=== PATIENT | male | born 1970 | race Caucasian/White ===

== ENCOUNTER 2018-11-10 06:43 | Day surgery (SDC) | payer OTHER ==
[2018-11-10] MEDS ORDERED: Lactated Ringers 1,000 ML IV ONE (06:44)
[2018-11-10] MEDS ORDERED: Ketorolac 30 MG/ML SDV IVPUSH ONE (06:44)
[2018-11-10] MEDS ORDERED: fentaNYL 100 MCG/2 ML SDV IV ONE (06:44)
[2018-11-10] MEDS ORDERED: Propofol 200 MG/20 ML SDV IV ONE (06:44)
[2018-11-10] MEDS ORDERED: Midazolam 1 MG/ML 2 ML SDV IV ONE (06:44)
[2018-11-10] MEDS ORDERED: Ondansetron 4 MG/2 ML SDV IVPUSH ONE (06:44)
[2018-11-10] MEDS ORDERED: Sodium Chloride 0.9% 10 ML Syringe FLUSH PRN (06:45)
[2018-11-10] MEDS: Lactated Ringers 1,000 ML IV SCH (07:15)
--- NOTE | 2018-11-10 07:32 | PCM.HP ---
H&P History of Present Illness - General Date of Service: 11/10/18 Admit Problem/Dx: Admission Diagnosis/Problem Admission Diagnosis/Problem Hernia repair Source of Information: Patient, Old Records - History of Present Illness Initial Comments - Free Text/Narative: 48 yo wm with a hx of right groin pain. Off and on and recently renewed with an exercise regimen. Some scrotal pain. No bulge US demonstrates hernia on valsalva. - Related Data Allergies/Adverse Reactions: Allergies Allergy/AdvReac Type Severity Reaction Status Date / Time No Known Allergies Allergy Verified 11/09/18 10:03 Home Medications: Home Meds Multivitamin [Multivitamins] 1 each PO DAILY 11/09/18 [History] Naproxen Sodium [Aleve] 220 mg PO BID PRN 11/09/18 [History] Past Medical History HEENT History: Reports: None Cardiovascular History: Reports: None Respiratory History: Reports: None Gastrointestinal History: Reports: None Genitourinary History: Reports: None [employer] History: Reports: None Musculoskeletal History: Reports: None Neurological History: Reports: None Psychiatric History: Reports: None Endocrine/Metabolic History: Reports: Obesity/BMI 30+ Hematologic History: Reports: None Immunologic History: Reports: None Oncologic (Cancer) History: Reports: None Dermatologic History: Reports: None - Past Surgical History Head Surgeries/Procedures: Reports: None HEENT Surgical History: Reports: LEANDRA Cardiovascular Surgical History: Reports: None Respiratory Surgical History: Reports: None GI Surgical History: Reports: None Male Surgical History: Reports: None Endocrine Surgical History: Reports: None Neurological Surgical History: Reports: None Musculoskeletal Surgical History: Reports: None Oncologic Surgical History: Reports: None Dermatological Surgical History: Reports: None Social & Family History - Tobacco Use Smoking Status *Q: Never Smoker - Caffeine Use Caffeine Use: Reports: Soda - Recreational Drug Use Recreational Drug Use: No H&P Review of Systems - Review of Systems: Review Of Systems: See Below General: Reports: No Symptoms HEENT: Reports: No Symptoms Pulmonary: Reports: No Symptoms Cardiovascular: Reports: No Symptoms Gastrointestinal: Reports: No Symptoms Genitourinary: Reports: Other (see hpi) Musculoskeletal: Reports: No Symptoms Skin: Reports: No Symptoms Neurological: Reports: No Symptoms Exam - Exam Exam: See Below - Vital Signs Vital Signs: Last Vital Signs Temp 97.9 F 11/10/18 07:14 Pulse 63 11/10/18 07:14 Resp 16 11/10/18 07:14 BP 140/82 11/10/18 07:14 Pulse Ox 97 11/10/18 07:14 Weight: 121.7 kg - Exam General: Alert, Oriented Neck: Trachea Midline Lungs: Clear to Auscultation, Normal Respiratory Effort Cardiovascular: Regular Rate, Regular Rhythm GI/Abdominal Exam: Normal Bowel Sounds, Soft, Non-Tender (Male) Exam: Normal Inspection Extremities: Normal Inspection - Problem List (1) Inguinal hernia of right side without obstruction or gangrene SNOMED Code(s): 085299907 ICD Code: K40.90 - UNIL INGUINAL HERNIA, W/O OBST OR GANGR, NOT SPCF RECUR Status: Acute Current Visit: Yes Problem List Initiated/Reviewed/Updated: Yes Orders Last 24hrs: Active Orders 24 hr Category Date Time Status Patient Status [ADT] Routine ADT 11/10/18 06:45 Ordered Patient to Empty Bladder [RC] ASDIRECTED Care 11/10/18 06:45 Active Verify Patient Consent Obtain [RC] ASDIRECTED Care 11/10/18 06:45 Active Nothing Per Oral Diet [DIET] Diet 11/09/18 Dinner Ordered Lactated Ringers [Ringers, Lactated] 1,000 ml Med 11/10/18 06:45 Active IV ASDIRECTED Sodium Chloride 0.9% [Saline Flush] Med 11/10/18 06:45 Active 10 ml FLUSH ASDIRECTED PRN ceFAZolin [Ancef] 3 gm Med 11/10/18 08:00 Active Sodium Chloride 0.9% [Normal Saline] 100 ml IV ONETIME Peripheral IV Insertion Adult [OM.PC] Routine Oth 11/10/18 06:45 Ordered Sequential Compression Device [OM.PC] Routine Oth 11/10/18 06:45 Ordered Resuscitation Status Routine Resus Stat 11/09/18 10:06 Ordered Medication Orders Cefazolin Sodium 3 gm/ Sodium (Chloride) 100 mls @ 200 mls/hr IV ONETIME ONE Stop: 11/10/18 08:29 Last Admin: 11/10/18 07:26 Dose: 200 mls/hr Lactated Ringer's (Ringers, Lactated) 1,000 mls @ 125 mls/hr IV ASDIRECTED [facility] Last Admin: 11/10/18 07:15 Dose: 125 mls/hr Sodium Chloride (Saline Flush) 10 ml FLUSH ASDIRECTED PRN PRN Reason: Keep Vein Open Assessment/Plan Comment:: Given US results will proceed with a repair. procedure and risks explained to the pt to include bleeding, infection, injury to vas deferens and blood supply to testes. use of mesh and injury/division of ilioinguinal nerve also discussed. he asks us to proceed.
[2018-11-10] MEDS: Lidocaine 1% with EPINEPHrine 1:100,000 20 ML MDV INJECT ONE (08:08)
[2018-11-10] MEDS: Bupivacaine 0.5% 50 ML MDV INJECT ONE (08:08)
--- NOTE | 2018-11-10 08:50 | PCM.OPNOTE ---
- General Post-Op/Procedure Note Date of Surgery/Procedure: 11/10/18 Operative Procedure(s): rih repair Findings: direct hernia Pre Op Diagnosis: rih. without obstruction or gangrene Post-Op Diagnosis: Same Anesthesia Technique: General LMA, Local (12 ml 1 % lido with epi 1%buvipicaine) Primary Surgeon: Abrahan Hatch Anesthesia Provider: Curtis Ballard Pathology: none Complications: None Condition: Good Free Text/Narrative:: see dictation
[2018-11-10] MEDS: Acetaminophen/HYDROcodone 325-5 MG Tab PO PRN (09:29)
--- NOTE | 2018-11-10 10:57 | OR ---
DATE OF OPERATION: 11/10/2018 SURGEON: Abrahan Hatch MD PROCEDURE PERFORMED: Right inguinal hernia repair. PREOPERATIVE DIAGNOSIS: Right inguinal hernia. POSTOPERATIVE DIAGNOSIS: Right inguinal hernia. INDICATIONS FOR PROCEDURE: This is a 48-year-old white male, referred with a history of some right groin discomfort. Ultrasound revealed what appeared to be an inguinal hernia. He was offered and accepted repair. INTRAOPERATIVE FINDINGS: Weakness in the floor of the inguinal canal, which appeared to be a direct hernia was identified. This was repaired with a Phasix plug and patch, size medium, lot number [id number], reference #[id number], expiration date of 12/05/2019. He had a total of 12 mL of 1:1 mixture of 1% lidocaine with epinephrine 0.5% bupivacaine was used. DESCRIPTION OF OPERATION: After an excellent LMA anesthesia was administered, the patient was prepped and draped in usual sterile manner. Local was injected along our planned incision site, which was along the line and intercepted the ilioinguinal nerve correction between the anterior-superior iliac spine and the symphysis pubis. A 5 cm incision was made. Skin was incised with a #15 scalpel blade. Underlying subcu fat was divided using electrocautery and the superficial inferior epigastric veins were clamped, divided, and tied with 2-0 Vicryl ties. Aponeurosis of the external oblique was exposed. More local was injected underneath the aponeurosis. A radha was made in the aponeurosis and carried out through the external ring. The aponeurosis was controlled with two hemostats. The cord was mobilized. Attempts to visualize the ilioinguinal nerve were not successful and assumed he must have had an anatomic variation in this regard. After controlling the spermatic cord with a Demetrius drain, the cord was skeletonized. Cord lipoma was excised and passed off the field. There did not appear to be any evidence of indirect hernia, but the direct hernia was noted. A medium Phasix plug was then inserted into the defect and tacked into position with interrupted 2-0 Vicryl. The overlay mesh was then trimmed, placed on the floor of the inguinal canal with a keyhole coming down vertically. It was tacked into position along the ilioinguinal nerve with a running 2-0 Vicryl. The keyhole was closed again with a running 2-0 Vicryl and SorbaFix was used to tack the mesh to the floor of the inguinal canal. The aponeurosis was then closed with a running 3-0 Vicryl. 3-0 Vicryl was used to approximate [place]ba fascia and then the skin. Needle, sponge, and instrument counts were reported as correct. Steri-Strips were applied. The patient tolerated the procedure well. /[id number] /MODL
[2018-11-10 11:26] VITALS: BP 108/64
== END 2018-11-10 10:21 | disposition home or self-care (01) ==
LOC: FB.SDS 06:43
PROVIDERS: ATTEND Surgery
DX: K40.90 Unilateral inguinal hernia, without obstruction or gangrene, not specified as recurrent (principal); G89.29 Other chronic pain; M54.5 Low back pain; E66.9 Obesity, unspecified; Z68.35 Body mass index [BMI] 35.0-35.9, adult; Z79.899 Other long term (current) drug therapy
CPT/HCPCS: A9270-GY; C1713; C1781; J0690; J1885; J2250; J2405; J2704; J3010; J3490; J7030; J7120

== ENCOUNTER 2019-07-16 20:24 | Emergency (ER) | payer OTHER ==
--- NOTE | 2019-07-16 20:34 | EDM.PDOC ---
ED HPI GENERAL MEDICAL PROBLEM - General Stated Complaint: chest discomfort Time Seen by Provider: 07/16/19 20:30 Source of Information: Reports: Patient History Limitations: Reports: No Limitations - History of Present Illness INITIAL COMMENTS - FREE TEXT/NARRATIVE: 48-year-old male who reports beginning about 2-3 days ago he noted some discomfort in his left chest that seemed to come and go. It was quite mild and he is not exactly sure what he was doing when the initial pain began but he has noted that it seems to come on with anything that he is doing and it lasts sometimes for 2-3 hours. It is more of a pressure type feeling that is in his left chest. It does not radiate. He has no neck, jaw or arm pain associated with this. He has no shortness of breath associated with this. It seems that it has been somewhat worsening with time. More so, he feels that it just is not going away and it has been continually recurring and that caused him to come to the emergency department for evaluation at this time. He reports that he has been doing exercises all along as well and in fact she did exercise on the treadmill today and it really didn't seem to make her worse. He currently has some mild discomfort in his left chest that he would rate as a 1/10. He reports that he called and set up an appointment with your provider at the [facility] in [place] but they told him to come to the emergency department for evaluation today as well. No nausea or vomiting. No cough. No fevers or chills. No abdominal pain. He does have a history of chronic lumbar back pain and has had epidural steroid injections in this area but he also has recently been having thoracic back pain. He reports that he had MRI of his lumbar and thoracic spine and it showed problems in both areas. There are no other associated signs or symptoms. There are no other modifying factors. Onset: Other (2-3 days) Duration: Constant (Just not going away) Location: Reports: Chest Quality: Reports: Pressure Severity: Mild Improves with: Reports: None Worsens with: Reports: None Context: Reports: Other (As above) Associated Symptoms: Reports: No Other Symptoms (As above) Treatments [employer]: Reports: Other (see below) (Nothing) Left Upper Chest Pain Score (Numeric/FACES): 2 - Related Data Allergies Allergy/AdvReac Type Severity Reaction Status Date / Time No Known Allergies Allergy Verified 11/09/18 10:03 Home Meds: Home Meds Multivitamin [Multivitamins] 1 each PO DAILY 11/09/18 [History] Ibuprofen 400 mg PO ASDIRECTED PRN 07/16/19 [History] Past Medical History Musculoskeletal History: Reports: Back Pain, Chronic Endocrine/Metabolic History: Reports: Obesity/BMI 30+ - Past Surgical History HEENT Surgical History: Reports: LASIK GI Surgical History: Reports: Hernia, Inguinal (Right inguinal hernia repair) Male Surgical History: Reports: None Endocrine Surgical History: Reports: None Neurological Surgical History: Reports: None Musculoskeletal Surgical History: Reports: None Oncologic Surgical History: Reports: None Dermatological Surgical History: Reports: None Social & Family History - Tobacco Use Smoking Status *Q: Unknown Ever Smoked (Nonsmoker) - Caffeine Use Caffeine Use: Reports: Soda - Alcohol Use Alcohol Use History: No - Living Situation & Occupation Occupation: Employed (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 Denies: Dyspnea on Exertion, Lightheadedness, Orthopnea, Palpitations GI/Abdominal: Reports: No Symptoms : Reports: No Symptoms Musculoskeletal: Reports: No Symptoms Skin: Reports: No Symptoms Neurological: Reports: No Symptoms Hematologic/Lymphatic: Reports: No Symptoms Immunologic: Reports: No Symptoms ED EXAM, GENERAL - Physical Exam Exam: See Below Exam Limited By: No Limitations General Appearance: Alert, WD/WN, No Apparent Distress Eye Exam: Bilateral Eye: EOMI, Normal Inspection, PERRL Ears: Normal External Exam, Hearing Grossly Normal Ear Exam: Bilateral Ear: Auricle Normal Nose: Normal Inspection, Normal Mucosa, No Blood Throat/Mouth: Normal Inspection, Normal Lips, Normal Oropharynx, Normal Voice, No Airway Compromise Head: Atraumatic, Normocephalic Neck: Normal Inspection, Supple, Non-Tender, Full Range of Motion Respiratory/Chest: No Respiratory Distress, Lungs Clear, Normal Breath Sounds, No Accessory Muscle Use, Chest Non-Tender Cardiovascular: Normal Peripheral Pulses, Regular Rate, Rhythm, No JVD, No Murmur Peripheral Pulses: 2+: Radial (L), Radial (R), Dorsalis Pedis (L), Dorsalis Pedis (R) GI/Abdominal: Normal Bowel Sounds, Soft, Non-Tender, No Mass Back Exam: Normal Inspection Extremities: Normal Inspection, Normal Range of Motion, Non-Tender, No Pedal Edema, Normal Capillary Refill Neurological: Alert, Oriented, CN II-XII Intact, Normal Cognition, No Motor/ Sensory Deficits Psychiatric: Normal Affect, Normal Mood Skin Exam: Warm, Dry, Intact, Normal Color, No Rash EKG INTERPRETATION EKG Date: 07/16/19 Time: 20:35 Rhythm: NSR Rate (Beats/Min): 81 [place]: Normal P-Wave: Present QRS: Normal ST-T: Other (Nonspecific ST-T changes) QT: Normal Comparison: No Change (Compared EKG performed on 04/30/2015, the T waves seem to be a little more flat but really I see no significant change between the 2 EKGs.) Course - Vital Signs Last Recorded V/S: Last Vital Signs Temp 36.6 C 07/16/19 20:26 Pulse 74 07/16/19 20:26 Resp 18 07/16/19 20:26 BP 144/87 H 07/16/19 20:26 Pulse Ox 100 07/16/19 20:26 - Orders/Labs/Meds Orders: Active Orders 24 hr Category Date Time Status Cardiac Monitoring [RC] .As Directed Care 07/16/19 20:48 Active EKG Documentation Completion [RC] ASDIRECTED Care 07/16/19 20:49 Active Chest 1V Frontal [CR] Stat Exams 07/16/19 20:48 Taken Sodium Chloride 0.9% [Saline Flush] Med 07/16/19 20:48 Active 10 ml FLUSH ASDIRECTED PRN Peripheral IV Insertion Adult [OM.PC] Routine Oth 07/16/19 20:48 Ordered EKG 12 Lead [EK] Routine Ther 07/16/19 20:48 Ordered Medication Orders Sodium Chloride (Saline Flush) 10 ml FLUSH ASDIRECTED PRN PRN Reason: Keep Vein Open Labs: Laboratory Tests 07/16/19 07/16/19 07/16/19 Range/Units 20:58 20:58 20:58 WBC 9.8 (4.5-12.0) X10-3/uL RBC 5.06 (4.30-5.75) x10(6)uL Hgb 16.2 (13.5-17.8) g/dL Hct 46.2 (30.0-51.3) % MCV 91.3 (80-96) fL MCH 32.0 (27.7-33.6) pg MCHC 35.0 (32.2-35.4) g/dL RDW 13.0 (11.5-15.5) % Plt Count 226 (125-369) X10(3)uL MPV 8.5 (7.4-10.4) fL Neut % (Auto) 60.6 (46-82) % Lymph % (Auto) 29.8 (13-37) % Rooks % (Auto) 7.5 (4-12) % Eos % (Auto) 1 (1.0-5.0) % Baso % (Auto) 1 (0-2) % Neut # (Auto) 6.0 (1.6-8.3) # Lymph # (Auto) 2.9 (0.6-5.0) # Rooks # (Auto) 0.7 (0.0-1.3) # Eos # (Auto) 0.1 (0.0-0.8) # Baso # (Auto) 0.1 (0.0-0.2) # D-Dimer, Quantitative 0.29 (0.0-0.59) mg/LFEU Sodium 143 (135-145) mmol/L Potassium 3.8 (3.5-5.3) mmol/L Chloride 104 (100-110) mmol/L Carbon Dioxide 27 (21-32) mmol/L BUN 20 H (7-18) mg/dL Creatinine 1.1 (0.70-1.30) mg/dL Est Cr Clr Drug Dosing TNP Estimated GFR (MDRD) > 60 (>60) BUN/Creatinine Ratio 18.2 (9-20) Glucose 107 (80-116) mg/dL Calcium 8.8 (8.6-10.2) mg/dL Magnesium (1.8-2.5) mg/dL Total Bilirubin 0.8 (0.1-1.3) mg/dL AST 31 H (5-25) IU/L ALT 57 H (12-36) U/L Alkaline Phosphatase 57 (56-112) IU/L Troponin I (4.0-60.3) pg/mL Total Protein 7.0 (6.0-8.0) g/dL Albumin 4.0 (3.5-5.2) g/dL Globulin 3.0 g/dL Albumin/Globulin Ratio 1.3 07/16/19 07/16/19 07/16/19 Range/Units 20:58 20:58 23:03 WBC (4.5-12.0) X10-3/uL RBC (4.30-5.75) x10(6)uL Hgb (13.5-17.8) g/dL Hct (30.0-51.3) % MCV (80-96) fL MCH (27.7-33.6) pg MCHC (32.2-35.4) g/dL RDW (11.5-15.5) % Plt Count (125-369) X10(3)uL MPV (7.4-10.4) fL Neut % (Auto) (46-82) % Lymph % (Auto) (13-37) % Rooks % (Auto) (4-12) % Eos % (Auto) (1.0-5.0) % Baso % (Auto) (0-2) % Neut # (Auto) (1.6-8.3) # Lymph # (Auto) (0.6-5.0) # Rooks # (Auto) (0.0-1.3) # Eos # (Auto) (0.0-0.8) # Baso # (Auto) (0.0-0.2) # D-Dimer, Quantitative (0.0-0.59) mg/LFEU Sodium (135-145) mmol/L Potassium (3.5-5.3) mmol/L Chloride (100-110) mmol/L Carbon Dioxide (21-32) mmol/L BUN (7-18) mg/dL Creatinine (0.70-1.30) mg/dL Est Cr Clr Drug Dosing Estimated GFR (MDRD) (>60) BUN/Creatinine Ratio (9-20) Glucose (80-116) mg/dL Calcium (8.6-10.2) mg/dL Magnesium 2.1 (1.8-2.5) mg/dL Total Bilirubin (0.1-1.3) mg/dL AST (5-25) IU/L ALT (12-36) U/L Alkaline Phosphatase (56-112) IU/L Troponin I 6.3 6.1 (4.0-60.3) pg/mL Total Protein (6.0-8.0) g/dL Albumin (3.5-5.2) g/dL Globulin g/dL Albumin/Globulin Ratio Meds: Medications Generic Name Dose Route Start Last Admin Trade Name Freq PRN Reason Stop Dose Admin Sodium Chloride 10 ml 07/16/19 20:48 Saline Flush FLUSH ASDIRECTED PRN Keep Vein Open Discontinued Medications Generic Name Dose Route Start Last Admin Trade Name Freq PRN Reason Stop Dose Admin Aspirin 324 mg 07/16/19 20:50 07/16/19 20:50 Aspirin PO 07/16/19 20:51 324 mg ONETIME ONE Administration - Radiology Interpretation Free Text/Narrative:: Chest x-ray PA and lateral shows no acute disease. - Re-Assessments/Exams Free Text/Narrative Re-Assessment/Exam: 07/16/19 21:50: The patient is resting comfortably. He is discomfort free. His initial troponin was normal. His d-dimer was negative. His chest x-ray was normal. I discussed options with the patient and he recommended that we repeat his troponin in 2 hours. If it is negative at this time, he would be able to be discharged. He is agreeable to this plan. 07/16/19 23:25: Patient feels well. His repeat troponin was normal. I am unsure why he is having the chest pain but it does not appear to be related to his heart. The patient will need to follow-up with his primary provider as he has scheduled need further outpatient workup. Precautions and reasons for return to the emergency department were discussed with the patient prior to his discharge. The patient is agreement with the plan for discharge. Departure - Departure Time of Disposition: 23:35 Disposition: Home, Self-Care 01 Condition: Good Clinical Impression: Atypical chest pain Instructions: Nonspecific Chest Pain, [id number] Referrals: PCP,None [Primary Care Provider] - Forms: ED Department Discharge Additional Instructions: Your blood tests were reassuringly normal. Your repeat cardiac enzyme was normal. Your chest x-ray was normal. Your EKG was as well. I am unsure why you are having the chest pain but it does not appear to be something related to your heart at this time. You're blood clot screening test was also negative and therefore you do not appear to have any blood clots in your lungs at this time as well. You should rest. You should drink plenty of fluids. Avoid any strenuous activity until you have followed up with your primary doctor and been cleared to do so. Back to the emergency department for worse chest discomfort, neck pain/jaw pain/arm pain, trouble breathing or any other concerning sign or symptom. Sepsis Event Note - Focused Exam Vital Signs: Vital Signs Temp Pulse Resp BP Pulse Ox 07/16/19 20:26 36.6 C 74 18 144/87 H 100 Date Exam was Performed: 07/16/19 Time Exam was Performed: 23:47 - My Orders Last 24 Hours: My Active Orders 07/16/19 20:48 Cardiac Monitoring [RC] .As Directed Chest 1V Frontal [CR] Stat Sodium Chloride 0.9% [Saline Flush] 10 ml FLUSH ASDIRECTED PRN Peripheral IV Insertion Adult [OM.PC] Routine EKG 12 Lead [EK] Routine 07/16/19 20:49 EKG Documentation Completion [RC] ASDIRECTED - Assessment/Plan Last 24 Hours: My Active Orders 07/16/19 20:48 Cardiac Monitoring [RC] .As Directed Chest 1V Frontal [CR] Stat Sodium Chloride 0.9% [Saline Flush] 10 ml FLUSH ASDIRECTED PRN Peripheral IV Insertion Adult [OM.PC] Routine EKG 12 Lead [EK] Routine 07/16/19 20:49 EKG Documentation Completion [RC] ASDIRECTED
[2019-07-16] MEDS ORDERED: Sodium Chloride 0.9% 10 ML Syringe FLUSH PRN (20:48)
[2019-07-16] MEDS ORDERED: Aspirin 81 MG Tab.Chew PO ONE (20:50)
[2019-07-16 21:22] VITALS: BP 144/87; PULSE 74
--- NOTE | 2019-07-19 11:26 | CR ---
INDICATION: Chest discomfort. CHEST, ONE VIEW: Portable AP upright view of the chest was obtained 07/16/19, no comparisons. Overlying metal is noted at the base of the neck. Overlying EKG leads are noted. The heart is normal in size and shape. No consolidating pneumonia or effusion was seen. Relatively poor inspiration is noted. IMPRESSION: No acute process. MTDD
== END 2019-07-16 23:40 | disposition home or self-care (01) ==
LOC: FB.ED 20:24
DX: R07.89 Other chest pain (principal); E66.9 Obesity, unspecified; Z68.35 Body mass index [BMI] 35.0-35.9, adult
CPT/HCPCS: 36415; 71045; 80053; 83735; 84484; 85025; 85379; 93005; 99285; A9270

== ENCOUNTER 2022-12-20 21:41 | Emergency (ER) | payer OTHER ==
[2022-12-20] MEDS ORDERED: Amoxicillin/Clavulanate K 875-125 MG Tab PO ONE (22:09)
[2022-12-20] MEDS ORDERED: Diphtheria,Pertussis(Acell),Tetanus Vaccine 0.5 ML Syringe IM ONE (22:09)
[2022-12-20 22:31] VITALS: BP 125/81; PULSE 56
== END 2022-12-20 22:25 | disposition home or self-care (01) ==
LOC: FB.ED 21:41
DX: S50.351A Superficial foreign body of right elbow, initial encounter (principal); E78.00 Pure hypercholesterolemia, unspecified; E66.9 Obesity, unspecified; Z68.33 Body mass index [BMI] 33.0-33.9, adult; Z86.16 Personal history of COVID-19; Z79.899 Other long term (current) drug therapy; W45.8XXA Other foreign body or object entering through skin, initial encounter
CPT/HCPCS: 90471; 90715; 99282; A9270